=== PATIENT | male | born 1995 | race African-American/Black ===

== ENCOUNTER 2016-03-29 19:19 | Emergency (ER) | payer OTHER ==
[2016-03-29 19:30] VITALS: RESP 16; TEMP 97.9
--- NOTE | 2016-03-29 19:53 | EDPHY ---
H & P Time Seen by Provider: 03/29/16 19:36 HPI/ROS: CHIEF COMPLAINT: Left foot pain HISTORY OF PRESENT ILLNESS: 21-year-old male via private vehicle in the ER complaining of acute left lateral foot pain which occurred earlier today when he is walking on the stairs, slipped and felt something pop. He is unable to bear weight secondary to pain at the 5th metatarsal. No ankle pain. No proximal pain or injury. PHYSICAL EXAM (Prior to examination, patient consented to physical exam, hands were washed and my usual and customary physical exam procedures followed) 1) GENERAL: Well-developed, well-nourished, alert and oriented. Appears to be in no acute distress. 2) HEAD: Normocephalic 3) HEENT: Pupils equal, round, reactive to light bilaterally. 4) LUNGS: Breathing comfortably. 5) MUSCULOSKELETAL: proximal tibia and fibula nontender .5th MT tender negative Saeed test, compartments soft 6) SKIN: intact with ecchymosis 7) VASCULAR: DP,PT pulses and cap refill present and brisk DIFFERENTIAL DIAGNOSIS: in no particular order including but not limited to fracture, sprain, compartment syndrome 3 Views Left Foot: Reason for examination: Pain following trauma. Findings: A fracture is not identified. The bone alignment is normal. A radiopaque foreign body is not identified. Impression: Negative for fracture. Dictated By: Girish Fisher MD Images reviewed by myself Procedure: Crutches indications for crutch use discussed with patient. Patient fitted for crutches by ER staff. Observed ambulating with crutches. I think the patient has the capacity to safely use crutches. Usual and customary crutch walking precautions provided Procedure: Splint A Сергей boot splint was applied by ER wheel alignment technician. After application of the splint I returned and re-examined the patient. The splint was adequately immobilizing the joint and distal to the splint the patient's circulation and sensation were intact. Patient shows no signs of compartment syndrome. Was given orthopedic precautions. Smoking Status: Never smoked Constitutional: Initial Vital Signs Temperature (C) 36.6 C 03/29/16 19:27 Heart Rate 98 03/29/16 19:27 Respiratory Rate 16 03/29/16 19:27 Blood Pressure 144/84 H 03/29/16 19:27 O2 Sat (%) 94 03/29/16 19:27 O2 Delivery Mode Room Air Allergies/Adverse Reactions: No Known Allergies Allergy (Unverified 03/29/16 19:27) Home Medications: Medication Instructions Recorded NK [No Known Home Meds] 03/29/16 MDM/Departure - MDM Medications Given: Discontinued Medications Acetaminophen/Hydrocodone Bitart ([place] 5/325mg Prepack#6) 1 btl TAKEHOME EDNOW ONE Stop: 03/29/16 20:23 Last Admin: 03/29/16 20:27 Dose: 1 btl - Depart Disposition: Home, Routine, Self-Care Clinical Impression: Sprain of left foot Qualifiers: Encounter type: initial encounter Qualifier Code: (S93.602A) Unspecified sprain of left foot, initial encounter Condition: Good Instructions: Hydrocodone/Acetaminophen (By mouth), Foot Sprain (ED) Additional Instructions: Return to the ER immediately if you experience discoloration, have worsening pain, numbness, tingling, or any other symptoms that concern you. If you received x-rays in the emergency department today, be advised, that ligamentous , tendon, muscular, and other non-bony injury cannot be fully ruled out. Try to keep your affected extremity elevated above the level of your chest, and keep cold packs on the affected area, for the next 48 hours. Referrals: Grupo Gonzales MD [Medical Doctor] - 5-7 days, call for appt.
[2016-03-29] MEDS ORDERED: HYDROCOD/APAP 5/325 PREPACK#6 BTL TAKEHOME ONE (20:22)
--- NOTE | 2016-03-29 20:41 | DX ---
3 Views Left Foot: Reason for examination: Pain following trauma. Findings: A fracture is not identified. The bone alignment is normal. A radiopaque foreign body is no t identified. Impression: Negative for fracture.
[2016-03-29 21:22] VITALS: BP 126/78; PULSE 78; O2SAT 96
== END 2016-03-29 21:22 | disposition home or self-care (01) ==
DX: S93.602A Unspecified sprain of left foot, initial encounter (principal); W18.49XA Other slipping, tripping and stumbling without falling, initial encounter; Y93.89 Activity, other specified

== ENCOUNTER 2017-10-07 19:12 | Observation (INO) | payer OTHER ==
--- NOTE | 2017-10-07 20:08 | EDPHY ---
H & P Time Seen by Provider: 10/07/17 19:51 HPI/ROS: HPI Injury to penis. 22-year-old male by private vehicle this person was having sexual intercourse with his girlfriend just prior to arrival. He felt and heard a sudden sharp snap in his penis. There was sudden loss of his erection then followed by diffuse swelling of his penis. No bleeding. He last drank water about 3 hr ago. He states his last solid food was approximately 12 noon. ROS: Constitutional: No fever, no chills. No weakness. Respiratory: No cough. No shortness of breath. Cardiac: No chest pain, no palpitations. Gastrointestinal: No abdominal pain, no vomiting, no diarrhea. Genitourinary: No hematuria. As above. Musculoskeletal: No back pain. No neck pain. No extremity pain. Skin: No rashes. Neurological: No headache. No focal weakness or altered sensation. Past medical history: Denies any significant past medical history. Social history: Here by himself currently. No drugs. No alcohol. Physical Exam: General Appearance: Alert, no distress. This patient is responding to questions appropriately and in full sentences. This patient appears well- hydrated and well-nourished. Eyes: Pupils equal and round no pallor or injection. No lid edema, erythema or injection. : Diffusely swollen non erect circumcised penis with faint diffuse ecchymosis mid dorsal aspect. The meatus appears intact and there is no blood at the meatus. Testicular exam unremarkable. Normal testicular lie. No masses and no lesions. Gastrointestinal: Abdomen is soft and nontender, no masses, bowel sounds normal. No focal tenderness at McBurney's point. No Hercules sign. Neurological: Motor sensory function is grossly intact. Cranial nerves are normal. Gait is normal. Skin: Warm and dry, no rashes. Extremities are symmetrical. All joints range without pain or impingement. Psychiatric: No agitation. No depression. Database: EKG: Imaging: Procedures: Emergency department course: Vital signs reviewed and are normal. Just after my evaluation Dr. Margaret Ball of the Urology service was paged at 8:00 p.m.. 8:05 p.m., spoke with Urology. She recommends a MRI of the penis. She is not sure whether this is contrast enhanced or not. She will call me back shortly with more detailed instructions. 8:30 p.m., spoke with Urology, she will take this patient to the operating room for exploration and further management. This plan was discussed with the patient. The patient's remaining emergency department course under my care has been uneventful. He was taken to the operating room under the care of Dr. Carballo in stable condition. Differential Diagnosis: The differential diagnosis on this patient includes but is not limited to fracture of penis. Testicular torsion, urethral injury unlikely. This represents a partial list of diagnoses considered. These considerations are based on history, physical exam, past history, reassessment and diagnostic testing. Smoking Status: Never smoked Constitutional: Initial Vital Signs Temperature (C) 36.8 C 10/07/17 19:21 Heart Rate 94 10/07/17 19:21 Respiratory Rate 20 10/07/17 19:21 Blood Pressure 135/67 H 10/07/17 19:21 O2 Sat (%) 97 10/07/17 19:21 O2 Delivery Mode Room Air Allergies/Adverse Reactions: No Known Allergies Allergy (Verified 10/07/17 19:24) Home Medications: Medication Instructions Recorded Bacitracin Ointment 1 manda TP BID 14 Days #15 pkt 10/08/17 Sennosides/Docusate Sodium 1 tab PO BID PRN #60 tab 10/08/17 [Senokot-S] oxyCODONE HCL/ACETAMINOPHEN 1 each PO Q6HRS PRN 5 Days #15 10/08/17 [Percocet 5-325 mg Tablet] tablet Medical Decision Making - Data Points Medications Given: Discontinued Medications Bacitracin (Bacitracin Ointment Tube) Confirm Administered Dose 14.2 manda TP .STK -MED ONE Stop: 10/07/17 21:00 Last Admin: 10/08/17 03:00 Dose: Not Given Bacitracin (Bacitracin Ointment) 1 manda TP BID IRMA Stop: 11/07/17 12:29 Last Admin: 10/08/17 12:59 Dose: Not Given Bupivacaine HCl (Sensorcaine 0.25% Sdv) Confirm Administered Dose 30 ml .ROUTE .STK-MED ONE Stop: 10/07/17 21:00 Last Admin: 10/08/17 03:00 Dose: Not Given Lactated Ringer's (Lr) 1,000 mls @ 0 mls/hr IV ONCE ONE PRN Reason: As Directed Stop: 10/07/17 20:57 Last Admin: 10/07/17 21:04 Dose: 1,000 mls Cefazolin Sodium/Dextrose (Ancef 2 Gm) 100 mls @ 200 mls/hr IV ONCALL ONE PRN Reason: Protocol Stop: 10/07/17 22:35 Last Admin: 10/07/17 22:10 Dose: 100 mls Dextrose/Sodium Chloride (D5w 1/2 Ns) 1,000 mls @ 100 mls/hr IV CONT IRMA Stop: 04/06/18 00:59 Last Admin: 10/08/17 01:39 Dose: 1,000 mls Ibuprofen (Motrin) 400 mg PO Q4HRS PRN PRN Reason: Pain, Mild/Fever, Can Take PO Stop: 04/06/18 00:53 Last Admin: 10/08/17 07:07 Dose: 400 mg Iopamidol (Isovue-M 300) Confirm Administered Dose 15 ml .ROUTE .STK-MED ONE Stop: 10/07/17 20:58 Last Admin: 10/08/17 03:00 Dose: Not Given Iopamidol (Isovue-M 300) Confirm Administered Dose 15 ml .ROUTE .STK-MED ONE Stop: 10/07/17 21:00 Last Admin: 10/08/17 03:00 Dose: Not Given Lidocaine (Uroject Lidocaine 2% Jelly) Confirm Administered Dose 20 ml .ROUTE .STK-MED ONE Stop: 10/07/17 20:58 Last Admin: 10/07/17 23:14 Dose: Not Given Lidocaine (Uroject Lidocaine 2% Jelly) Confirm Administered Dose 20 ml .ROUTE .STK-MED ONE Stop: 10/07/17 21:00 Last Admin: 10/08/17 03:01 Dose: Not Given Midazolam HCl (Versed) 2 mg IVP ONCALL ONE Stop: 10/07/17 21:01 Last Admin: 10/07/17 22:00 Dose: 2 mg Mineral Oil (Muri-Lube Mineral Oil) Confirm Administered Dose 10 ml .ROUTE .STK- MED ONE Stop: 10/07/17 21:00 Last Admin: 10/08/17 03:01 Dose: Not Given Senna/Docusate Sodium (Senokot-S) 1 tab PO BID IRMA Stop: 04/06/18 08:59 Last Admin: 10/08/17 09:35 Dose: Not Given Departure - Departure Disposition: [facility] Clinical Impression: Fracture of erect penis Condition: Fair
[2017-10-07 20:46] LABS: PLATELET COUNT 353 10^3/uL (150-400)
[2017-10-07 20:54] LABS: INR 1.03 (0.83-1.16); PROTIME(PATIENT) 13.7 SEC (12.0-15.0)
[2017-10-07] MEDS ORDERED: LR 1,000 ML IV ONE (20:56)
[2017-10-07] MEDS ORDERED: LIDOCAINE 2% JELLY 20 ML (UROJECT) ONE ×2 (20:57→20:59)
[2017-10-07] MEDS ORDERED: IOPAMIDOL (ISOVUE-M 300) 15 ML VIAL ONE ×2 (20:57→20:59)
[2017-10-07] MEDS ORDERED: BUPIVACAINE 0.25% 30 ML SDV ONE (20:59)
[2017-10-07] MEDS ORDERED: BACITRACIN ZINC 14.2 GM OINTTUBE TP ONE (20:59)
[2017-10-07] MEDS ORDERED: MINERAL OIL 10 ML VIAL ONE (20:59)
[2017-10-07] MEDS ORDERED: HYDROmorphONE/DILAUDID 1 MG/ML INJ IVP PRN (21:00)
[2017-10-07] MEDS ORDERED: NALOXONE HCL 0.4 MG/ML INJ IVP PRN (21:00)
[2017-10-07] MEDS ORDERED: ONDANSETRON 4 MG/2 ML VIAL IVP PRN (21:00)
[2017-10-07] MEDS ORDERED: fentaNYL 100 MCG/2 ML INJ IVP PRN (21:00)
[2017-10-07] MEDS ORDERED: ALBUTEROL 3 ML DEYVIAL IH PRN (21:00)
[2017-10-07] MEDS ORDERED: DEXAMETHASONE 4 MG/ML VIAL IVP PRN (21:00)
[2017-10-07] MEDS ORDERED: oxyCODONE IR 5 MG TAB PO PRN (21:00)
[2017-10-07] MEDS ORDERED: MIDAZOLAM 2 MG/2 ML VIAL IVP ONE (21:00)
[2017-10-07] MEDS ORDERED: NS 500 ML IV PRN (21:00)
--- NOTE | 2017-10-07 21:02 | PDANEPAE ---
ANE History of Present Illness Penis Fx ANE Past Medical History - Cardiovascular History Hx Hypertension: No Hx Arrhythmias: No Hx Chest Pain: No - Pulmonary History Hx COPD: No Hx Asthma/Reactive Airway Disease: No Hx Oxygen in Use at Home: No Hx Sleep Apnea: No - Endocrine History Hx Diabetes: No ANE Review of Systems Review of Systems: ANE Patient History - Allergies Allergies/Adverse Reactions: No Known Allergies Allergy (Verified 10/07/17 19:24) - Home Medications Home Medications: NK [No Known Home Meds] 03/29/16 [Last Taken Unknown] - NPO status NPO Since - Liquids (Date): 10/07/17 NPO Since - Liquids (Time): 16:30 NPO Since - Solids (Date): 10/07/17 NPO Since - Solids (Time): 12:00 - Smoking Hx Smoking Status: Never smoked CARRIE Labs/Vital Signs - Labs Result Diagrams: 10/07/17 20:39 10/07/17 20:39 - Vital Signs Blood Pressure: 145/87 Heart Rate: 103 Respiratory Rate: 17 O2 Sat (%): 99 Height: 175.26 cm Weight: 83.007 kg ANE Physical Exam - Airway Neck exam: FROM Mallampati Score: Class 2 Mouth exam: normal dental/mouth exam - Pulmonary Pulmonary: clear to auscultation - Cardiovascular Cardiovascular: regular rate and rhythym - ASA Status ASA Status: I, E ANE Anesthesia Plan Anesthesia Plan: GA w LMA
[2017-10-07] MEDS ORDERED: MIDAZOLAM 2 MG/2 ML VIAL ONE (21:04)
[2017-10-07] MEDS ORDERED: PROPOFOL 200 MG/20 ML VIAL ONE (21:11)
[2017-10-07] MEDS ORDERED: fentaNYL 100 MCG/2 ML INJ ONE (21:11)
[2017-10-07] MEDS ORDERED: LIDOCAINE 2% 5 ML SDV ONE (21:11)
[2017-10-07] MEDS ORDERED: ONDANSETRON 4 MG/2 ML VIAL ONE (21:12)
[2017-10-07] MEDS ORDERED: DEXAMETHASONE 4 MG/ML VIAL ONE (21:12)
[2017-10-07] MEDS ORDERED: CEFAZOLIN 2 GM/DEXTROSE/100 ML BAG IV ONE (21:56)
--- NOTE | 2017-10-07 22:01 | PDGENHP ---
History and Physical - Chief Complaint penile injury - History of Present Illness 22M 3 hrs ago, having intercourse, had sudden pain, felt a pop, had rapid loss of his erection and pain. Has never happened before. No other trauma in the past. Has voided, urine yellow. No other PMH or PSH. History Information - Allergies/Home Medication List Allergies/Adverse Reactions: No Known Allergies Allergy (Verified 10/07/17 19:24) Home Medications: NK [No Known Home Meds] 03/29/16 [Last Taken Unknown] I have personally reviewed and updated: family history, medical history, social history, surgical history - Past Medical History no pertinent PMH - Social History Smoking Status: Never smoked Review of Systems Review of Systems: ROS: 10pt was reviewed & negative except for what was stated in HPI & below Physical Exam Physical Exam: Gen NAD A&O CV regular Lungs Normal effort Abd soft Ext warm penile edema w ecchymosis, pain w palpation Temp Pulse Resp BP Pulse Ox 36.8 C 103 H 17 145/87 H 99 10/07/17 20:51 10/07/17 21:02 10/07/17 21:02 10/07/17 21:02 10/07/17 21:02 Lab Data & Imaging Review 10/07/17 20:39 10/07/17 20:39 WBC 8.03 10^3/uL (3.80-9.50) 10/07/17 20:39 RBC 6.00 10^6/uL (4.40-6.38) 10/07/17 20:39 Hgb 13.5 g/dL (13.7-17.5) L 10/07/17 20:39 Hct 42.5 % (40.0-51.0) 10/07/17 20:39 MCV 70.8 fL (81.5-99.8) L 10/07/17 20:39 MCH 22.5 pg (27.9-34.1) L 10/07/17 20:39 MCHC 31.8 g/dL (32.4-36.7) L 10/07/17 20:39 RDW 15.5 % (11.5-15.2) H 10/07/17 20:39 Plt Count 353 10^3/uL (150-400) 10/07/17 20:39 MPV 10.4 fL (8.7-11.7) 10/07/17 20:39 Neut % (Auto) 61.6 % (39.3-74.2) 10/07/17 20:39 Lymph % (Auto) 24.4 % (15.0-45.0) 10/07/17 20:39 Nuckolls % (Auto) 9.2 % (4.5-13.0) 10/07/17 20:39 Eos % (Auto) 3.4 % (0.6-7.6) 10/07/17 20:39 Baso % (Auto) 0.9 % (0.3-1.7) 10/07/17 20:39 Nucleat RBC Rel Count 0.0 % (0.0-0.2) 10/07/17 20:39 Absolute Neuts (auto) 4.95 10^3/uL (1.70-6.50) 10/07/17 20:39 Absolute Lymphs (auto) 1.96 10^3/uL (1.00-3.00) 10/07/17 20:39 Absolute Monos (auto) 0.74 10^3/uL (0.30-0.80) 10/07/17 20:39 Absolute Eos (auto) 0.27 10^3/uL (0.03-0.40) 10/07/17 20:39 Absolute Basos (auto) 0.07 10^3/uL (0.02-0.10) 10/07/17 20:39 Absolute Nucleated RBC 0.00 10^3/uL (0-0.01) 10/07/17 20:39 Immature Gran % 0.5 % (0.0-1.1) 10/07/17 20:39 Immature Gran # 0.04 10^3/uL (0.00-0.10) 10/07/17 20:39 PT 13.7 SEC (12.0-15.0) 10/07/17 20:39 INR 1.03 (0.83-1.16) 10/07/17 20:39 APTT 25.9 SEC (23.0-38.0) 10/07/17 20:39 Sodium 139 mEq/L (135-145) 10/07/17 20:39 Potassium 4.0 mEq/L (3.3-5.0) 10/07/17 20:39 Chloride 106 mEq/L (97-110) 10/07/17 20:39 Carbon Dioxide 25 mEq/l (22-31) 10/07/17 20:39 Anion Gap 8 mEq/L (8-16) 10/07/17 20:39 BUN 18 mg/dL (7-23) 10/07/17 20:39 Creatinine 1.0 mg/dL (0.7-1.3) 10/07/17 20:39 Estimated GFR > 60 10/07/17 20:39 Glucose 95 mg/dL (70-100) 10/07/17 20:39 Calcium 9.8 mg/dL (8.5-10.4) 10/07/17 20:39 Assessment & Plan Assessment: Suspect Fracture of erect penis (Acute) given hx and clinical exam. However, injury to penile veins can also mimic this type of exam. Plan: To the OR for penile exploration, repair of penile fracture, cystoscopy at start of case. I went over the risks in detail. Risks include bleeding, infection, pain, acute pain, chronic pain, pain with intercourse, pain with erection, alteration in penile sensation, postop fistula , necrosis of skin, need for subsequent procedures, urethral stricture, urethral injury.
[2017-10-07] MEDS ORDERED: ceFAZolin 2 GM/DEXTROSE 100 ML IV ONE (22:06)
[2017-10-07] MEDS ORDERED: HYDROmorphONE/DILAUDID 2 MG/ML INJ ONE (22:33)
--- NOTE | 2017-10-08 00:53 | POSTOPPROG ---
Post Op Note Date of Operation: 10/08/17 Surgeon: Margaret Ball Anesthesiologist: Dr. Field Anesthesia: GET(General Endotracheal) Pre-op Diagnosis: penile fracture Post-op Diagnosis: dorsal vascular injury Indication: penile injury, swellnig Procedure: cystourethroscopy, penile exploration, artificial erection, underwood placement Findings: no bucks fascia or corporal injury, hematoma at collection of dorsal veins Inf/Abcess present in the surg proc area at time of surgery?: No Depth: Superfical (Skin SQ) EBL: Minimal Complications: none, patient tolerated procedure well Drains: Other (underwood)
[2017-10-08] MEDS ORDERED: ONDANSETRON 4 MG/2 ML VIAL IVP PRN (00:54)
[2017-10-08] MEDS ORDERED: ACETAMINOPHEN 325 MG TAB PO PRN (00:54)
[2017-10-08] MEDS ORDERED: oxyCODONE IR 5 MG TAB PO PRN (00:54)
[2017-10-08] MEDS ORDERED: HYDROmorphONE/DILAUDID 1 MG/ML INJ IVP PRN (00:54)
[2017-10-08] MEDS ORDERED: D5W 1/2 NS 1,000 ML IV SCH (01:00)
--- NOTE | 2017-10-08 01:18 | POSTANESTH ---
Post Anesthetic Evaluation Cardiovascular Status: Normal, Stable Respiratory Status: Normal, Stable Level of Consciousness/Mental Status: Can Participate in Eval, Alert and Oriented Pain Control: Adequate, Prn Tx Ordered Nausea/Vomiting Control: Adequate, Prn Tx Ordered Complications Possibly Related to Anesthesia: None Noted
[2017-10-08] MEDS: IBUPROFEN 200 MG TAB PO PRN ×2 (01:40→07:07)
--- NOTE | 2017-10-08 02:12 | GOP ---
[f rep st] OPERATIVE REPORT DATE OF OPERATION: 10/07/2017 SURGEON: Margaret Ball MD ANESTHESIA: General. ANESTHESIOLOGIST: Dr. Tobias Field. PREOPERATIVE DIAGNOSIS: Penile injury, suspect penile fracture. POSTOPERATIVE DIAGNOSIS: Penile injury and hematoma secondary to dorsal vein vascular injury. PROCEDURE PERFORMED: Cystourethroscopy, penile exploration with degloving of the penis and artificial erection, Underwood catheter placement. FINDINGS: On cystoscopy, there was no urethral injury and no bladder abnormalities. Completely normal cystourethroscopy. There was no injury to Mckeon 's fascia and no corporal injury identified. The penis was entirely degloved down to the pubic bone and puboprostatic ligament. Artificial erection was given and there was no leakage of any saline from the injectable saline and again no visible area of defect. The penis did hold an erection with injectable saline and the erection was firm. Penile hematoma created from ruptured superficial dorsal veins. No fracture identified ESTIMATED BLOOD LOSS: 15 mL. INDICATIONS: Mr. Barrie Bran was having sexual intercourse this evening and while he was inserted in the vagina, felt a pop and a sudden pain and penile detumescence. He read on the Internet that this could be a potential fracture and so he headed to the ER and he was evaluated in the ER within 3 hours of having the episode happen. My clinical exam and his history was very consistent with a penile fracture. His penis was swollen, edematous, ecchymotic dorsally and I felt exploration was pertinent. He had urinated, urine was clear and he had no blood at the meatus. The rationale, risks and benefits for the procedure were discussed in detail with him and thoroughly. The benefit of penile exploration to identify possible penile fracture outweighed any risks. So, the risks included bleeding, infection, pain, acute pain, chronic pain, injury to the erectile and penile nerves, erectile dysfunction in the future, pain with intercourse, pain with erection, inability to maintain an erection, also, priapism, and fistula formation were discussed in detail with him prior to going back to surgery and he understood those risks and he agreed to proceed. DESCRIPTION OF PROCEDURE: The patient was taken back to the operating room, placed on the operating table in the supine position. General anesthesia induced without complication. Time-out performed and core measures satisfied including placement of a Melvi Hugger, SCDs and administration of 2 g Ancef antibiotics. His genitalia were shaved and then draped and prepped in the standard surgical fashion. A flexible cystoscope easily cannulated his urethral meatus and was advanced atraumatically into the urethra and into the bladder. There was absolutely no urethral injury. No urethra ecchymosis or sign of urethra trauma. The bladder was completely normal on reeves cystoscopy. I carefully again examined the urethra upon removing the scope and again, the urethra was completely normal and mucosa pristine. The next step was to proceed with a circumferential circumcising incision at about 1 cm proximal the coronal sulcus which was in his prior circumcision line. I marked this out circumferentially and then took a 15 blade and incised the skin and then was able to deglove the penis with use of electrocautery. There was a hematoma on the dorsal aspect of his penis proximally near the penile base, and I degloved the penis all the way to this area and there was a very large superficial dorsal vein that actually dove into the tunic albuginea distally, but surfaced from the tunica/bucks fascia on the dorsal side proximally at this area of hematoma. There were branching dorsal veins in this area of the hematoma. I was able to carefully dissect out the supeficial dorsal vein from the hematoma, and preserved this superficial vein. There was a small branch that went into the hematoma and I was needed to ligate this with 4-0 Vicryl to further explore the dorsal shaft and work toward degloving the penis on that dorsal side . So once I degloved the penis all the way to the puboprostatic ligament, all the way to where I could feel the pubic bone, I noted no Mckeon's fascia abnormality during the entire dissection. No tears in the bucks and no corporal abnormalities. At this point, I proceeded with artificial erection with injectable saline, injected 60 cc of saline and even with 30cc there was a good erection and it maintained itself even when I took out the butterfly from the injection. I put in then 60 cc and it maintained a firm erection. I did not see any leakage of any saline anywhere along the entire shaft that I had degloved. I looked deep within my dissection where the puboprostatic ligaments were and where I could feel the pubic bone, exposing with hand held retractors, and there was again no leakage, so at this point I concluded there was no penile fracture as the penis did hold an erection well and I saw no visible injury. I conclude that there was rupture of the dorsal veins, likely a branch during erection w intercourse, this rupture created this large hematoma and this can mimic a penile fracture sensation of popping, but not actually be a penile fracture. So at this point I was very confident there was no penile fracture. I did some cautery of the dartos to prevent any bleeding in the future to secure hemostasis, I copiously irrigated the shaft and entire degloved area. and then I proceeded with reapproximating the shaft skin to the cuff of skin distally near the coronal sulcus with 3-0 chromic in an interrupted horizontal mattress fashion. I did, of note, place a Underwood at the start of the case after the cystoscopy and I did exchange his Underwood for 14- Japanese Underwood and felt just leave him with this overnight considering all the swelling. Placed bacitracin liberally around the approximated skin and did some Quinton and Coban for hemostasis as well as control of further swelling. At this point he was woken from anesthesia and transferred to PACU in good condition. He will be admitted overnight and underwood removed tomorrow AM. COMPLICATIONS: None. The patient tolerated the procedure well. /[id number]/MODL MTDD
[2017-10-08 08:56] VITALS: BP 118/61
[2017-10-08] MEDS ORDERED: SENNOSIDES/DOCUSATE SODIUM TAB PO SCH (09:00)
--- NOTE | 2017-10-08 11:19 | SOAPPROG ---
SOAP Progress Note Assessment/Plan: Assessment: Dorsal vein branch injury Plan: Home with pain meds, ointment to incision BID x 2 weeks. No intercourse for 6 weeks. Follow up in my clinic in 2 weeks. 10/08/17 11:15 10/08/17 11:30 Subjective: s/p penile exploration, with finding hematoma at area of dorsal vein branches proximal shaft, suspect dorsal vein branch injury Doing well. Minor pain, managed well w Ibuprofen at this time. Voided easily. Objective: Vital Signs Temp Pulse Resp BP Pulse Ox 36.7 C 60 16 118/61 95 10/08/17 08:54 10/08/17 08:54 10/08/17 08:54 10/08/17 08:54 10/08/17 08:54 Laboratory Results 10/07/17 20:39 10/07/17 20:39 10/07/17 10/08/17 10/09/17 05:59 05:59 05:59 Intake Total 1370 Output Total 955 900 Balance 415 -900 PT 13.7 SEC (12.0-15.0) 10/07/17 20:39 INR 1.03 (0.83-1.16) 10/07/17 20:39 Gen NAD A*O CV regular Lungs Normal effort Abd soft Ext warm dressing removed, appears as expected after surgery - shaft skin w edema and ecchymosis. Incision with mild oozing of blood, but otherwise intact. Ecchymosis and swelling glans, expected after surgery. - Pending Discharge Pending Discharge Within 24 Hours: Yes Pending Discharge Within 48 Hours: Yes Pending Discharge Date: 10/08/17 Pending Discharge Time: 02:00 ICD10 Worksheet Patient Problems: Problems Problem Status Onset Fracture of erect penis Acute
[2017-10-08] MEDS ORDERED: BACITRACIN OINTMENT 1 PACKET TP SCH (12:30)
== END 2017-10-08 13:03 | disposition home or self-care (01) ==
LOC: F1N 10-08 01:35
PROVIDERS: ADMIT Urology; ATTEND Urology
PROC: 0T9B70Z Drainage of Bladder with Drainage Device, Via Natural or Artificial Opening (ICD-10-PCS; principal; 2017-10-07 21:15)
PROC: 0TJD8ZZ Inspection of Urethra, Via Natural or Artificial Opening Endoscopic (ICD-10-PCS; principal; 2017-10-07 21:15)
PROC: 3E0N3GC Introduction of Other Therapeutic Substance into Male Reproductive, Percutaneous Approach (ICD-10-PCS; principal; 2017-10-07 21:15)
PROC: 0VQS0ZZ Repair Penis, Open Approach (ICD-10-PCS; principal; 2017-10-07 21:15)
DX: S39.94XA Unspecified injury of external genitals, initial encounter (principal); N48.89 Other specified disorders of penis
CPT/HCPCS: 96374; G0378; J0690; J1100; J1170; J2250; J2405; J2704; J3010; Q9967